=== PATIENT | male | born 1955 | race Caucasian/White ===

== ENCOUNTER 2018-08-30 05:10 | Inpatient (IN) ==
--- NOTE | 2018-08-07 11:20 | Anesthesiology Consultation ---
Date of Service August 07, 2018 Assessment & Plan (1) Encounter for pre-operative examination: - Check BSG AM DOS - Cardio note= 08/03/18= "stress test shows no perfusion defects and normal EF.. may proceed with knee replacement surgery with acceptably low cardiac risk.. an EKG is recommended in recovery" - OK to continue ASA perioperatively per surgeon* Chart Review Chart Review: Acceptable Risk for Surgery and Patient seen in Pre Admission Testing Teaching & Discussion Pre-Anesthesia Teaching/Discussion Notes: Instructed NPO after midnight before surgery,except medications with 15 cc of water. Medication instructions provided according to the PAT guidelines. History Surgery Operation Date: 08/30/18 07:00 Proposed Procedures p Left Total Knee Arthroplasty - Norman Urbano MD Height/Weight Height: 6 ft Weight: 127.1 kg Allergies Allergy/AdvReac Type Severity Reaction Status Date / Time Penicillins AdvReac "DOESN'T Verified 08/09/18 08:25 WORK" PER PT Medications Home Medications Medication Instructions Recorded Confirmed Last Taken amlodipine 10 mg PO QAM 07/31/18 07/31/18 Unknown aspirin [Aspirin Low Dose] 81 mg PO QAM 07/31/18 07/31/18 Unknown diphenhydramine HCl [Benadryl] 50 mg PO QAM 07/31/18 07/31/18 Unknown esomeprazole magnesium 40 mg PO QAM 07/31/18 07/31/18 Unknown fenofibrate nanocrystallized 145 mg PO QAM 07/31/18 07/31/18 Unknown hydrochlorothiazide 25 mg PO QAM 07/31/18 07/31/18 Unknown ibuprofen 600 - 800 mg PO QID PRN 07/31/18 07/31/18 Unknown [id number]-[id number]-2-[id number]-yur-[id number] 1 tab PO QAM 07/31/18 07/31/18 Unknown lisinopril 20 mg PO QAM 07/31/18 07/31/18 Unknown metformin 1,000 mg PO QDD 07/31/18 07/31/18 Unknown metoprolol succinate 150 mg PO QAM 07/31/18 07/31/18 Unknown rosuvastatin 10 mg PO QAM 07/31/18 07/31/18 Unknown Past Medical History Medical History CAD (coronary artery disease) STENTS X 3 (2003) Chronic back pain Foot drop, left CHRONIC S/P LUMBAR SURGERY GERD (gastroesophageal reflux disease) CONTROLLED Hiatal hernia High cholesterol History of renal stone Hx of deep venous thrombosis LLE DVT/PE (1972) POST-OP Hx of myocardial infarction STENTS X 3 (2003) Hx pulmonary embolism LLE DVT/PE (1972) POST-OP Hypertension Obesity Osteoarthritis Sciatica of left side S/P "NERVE BLOCK" 07/28/18 Past Family History Family History Mother Family history of diabetes mellitus Father Family history of diabetes mellitus Aunt Family history of diabetes mellitus Past Surgical History Surgical History History of back surgery History of cardiac cath STENTS X 3 (2003) History of colonoscopy History of meniscectomy of left knee Past Anesthesia History No Hx of Anesthesia Complications and No Family Hx of Anesthesia Complications History of PONV No Motion Sickness Screening History of Motion Sickness: Yes Social History Smoking Status: Never smoker Do You Dip or Chew Tobacco: No Hx Alcohol Use: Yes Alcohol type: beer alcohol intake frequency: holidays/special occasions only Hx Substance Use: No substance use type: does not use Exercise / Class Metabolic Activity III < 4 Walking/Shop/Light housework Review of Systems Patient denies chest pain, shortness of breath, cough, wheezing, palpitations. Physical Exam Vital Signs VITALS BP 113/68 P 56 TEMP 97.6 SP02 96%RA RESP 18 PHYSICAL Full neck and c-spine range of motion. Full TMJ range of motion. TMD 3 finger breaths Mallampati Score 3 Dentition: upper front right 3rd tooth "broken" Lungs: clear throughout to auscultation Cardiac: regular rate and rhythm, no murmurs noted Spine: normal Carotid arteries: negative bruit Extremities: no edema Short, thick neck Testing Electrocardiogram Date: 08/07/18 SB ar 55bpm with first AVB. LAD. NS IVCD. Chest X-Ray Date: 08/07/18 Findings: + NAD Cardiomegaly without acute process. Stress Test Date: 08/02/18 Type: nuclear "Normal regadenoson perfusion scan. Normal LV function, EF 56%." 57%MPHR. Laboratory Results 08/07/18 11:45 08/07/18 11:45 Blood Type O Positive 08/07/18 11:45 Antibody Screen NEGATIVE 08/07/18 11:45 PT 10.8 Seconds (9.0-12.0) 08/07/18 11:45 INR 1.1 (0.9-1.1) 08/07/18 11:45 APTT 24.2 Seconds (21.0-31.0) 08/07/18 11:45 Hemoglobin A1c 7.5 % (4.5-5.6) H 08/07/18 11:45 Urine Color Dark Yellow 08/07/18 11:45 Urine Appearance Clear (Clear) 08/07/18 11:45 Urine pH 5.0 (4.5-7.5) 08/07/18 11:45 Ur Specific [place] 1.023 (1.000-1.030) 08/07/18 11:45 Urine Protein Negative (Negative) 08/07/18 11:45 Urine Glucose (UA) Negative (Negative) 08/07/18 11:45 Urine Ketones Negative (Negative) 08/07/18 11:45 Urine Nitrite Negative (Negative) 08/07/18 11:45 Ur Leukocyte Esterase Negative (Negative) 08/07/18 11:45 Surgeon made aware of elevated hgba1c.
--- NOTE | 2018-08-07 11:22 | PAT Medication Instructions ---
Medication Instructions Date of Service August 07, 2018 Home Medications amlodipine 10 mg PO QAM aspirin [Aspirin Low Dose] 81 mg PO QAM diphenhydramine HCl [Benadryl] 50 mg PO QAM esomeprazole magnesium 40 mg PO QAM fenofibrate nanocrystallized 145 mg PO QAM gabapentin 300 mg PO QAM hydrochlorothiazide 25 mg PO QAM ibuprofen 600 - 800 mg PO QID PRN [id number]-[id number]-[id number]-[id number]-vlr-npnfmo 1 tab PO QAM lisinopril 20 mg PO QAM metformin 1,000 mg PO QDD metoprolol succinate 150 mg PO QAM rosuvastatin 10 mg PO QAM ASK your surgeon for instructions ibuprofen 600 - 800 mg PO QID PRN STOP taking 2 weeks before surgery (or as soon as possible if surgery is within 2 weeks) wacpj-ydbsh-1-nvq-exk-pwvnsg 1 tab PO QAM STOP taking 24 hours before surgery fenofibrate nanocrystallized 145 mg PO QAM DO NOT take the morning of surgery diphenhydramine HCl [Benadryl] 50 mg PO QAM hydrochlorothiazide 25 mg PO QAM lisinopril 20 mg PO QAM Take morning of surgery With a small sip of water, OTHERWISE NOTHING TO EAT OR DRINK AFTER MIDNIGHT: amlodipine 10 mg PO QAM esomeprazole magnesium 40 mg PO QAM gabapentin 300 mg PO QAM metoprolol succinate 150 mg PO QAM rosuvastatin 10 mg PO QAM Take evening before surgery metformin 1,000 mg PO QDD Other Notes If you have any questions please call us at [phone] or [phone] or [phone] or [phone]
--- NOTE | 2018-08-07 12:41 | XRay Report ---
XR chest Pre-admission PA/Lat HISTORY: 63 years-old Male pat preoperative exam. No acute chest complaints COMPARISON: None available TECHNIQUE: PA and lateral views of the chest FINDINGS: Cardiac silhouette is mildly enlarged. No pneumothorax, pleural effusion, focal airspace consolidatio n or overt pulmonary edema. Degenerative changes of the shoulders and spine. IMPRESSION: Cardiomegaly without acute process. The above report was generated using voice recognition software. It may contain grammatical, syntax o r spelling errors. Electronically signed by: Alejandro Reddy M.D. 08/07/2018 12:40 PM
[2018-08-07 12:44] LABS: Basophils # (auto) 0.03 K/uL (0-0.2); Basophils % (auto) 0.4 %; Eosinophils # (auto) 0.11 K/uL (0-0.5); Eosinophils % (auto) 1.4 %; Hematocrit (blood only) 44.2 % (42-52); Immature Granulocytes # (auto) 0.03 K/uL (0.00-0.02); Immature Granulocytes % (auto) 0.4 %; Lymphocytes # (auto) 2.28 K/uL (1.2-3.4); Lymphocytes % (auto) 29.3 %; Mean Corpuscular Hgb Conc 33.9 g/dL (32-36); Mean Corpuscular Volume 88.6 fL (80-100); Monocytes # (auto) 0.71 K/uL (0.11-0.59); Monocytes % (auto) 9.1 %; Neutrophils # (auto) 4.63 K/uL (1.4-6.5); Neutrophils % (auto) 59.4 %; Platelet Count 286 K/uL (130-400); RDW Coefficient of Variation 13.3 % (11.5-14.5); RDW Standard Deviation 42.7 fL (36.4-46.3); Red Blood Count 4.99 M/uL (4.7-6.1); White Blood Count 7.79 K/uL (4.8-10.8)
[2018-08-07 12:56] LABS: Estimated Average Glucose 169 mg/dl; Hemoglobin A1C 7.5 % (4.5-5.6)
[2018-08-07 12:58] LABS: INR 1.1 (0.9-1.1); Partial Thromboplastin Ratio 0.9; Partial Thromboplastin Time 24.2 Seconds (21.0-31.0); Prothrombin Time 10.8 Seconds (9.0-12.0)
[2018-08-07 12:59] LABS: BUN Creatinine Ratio 21.6 (10-20); Calcium 9.8 mg/dl (8.5-10.1); Creatinine Clr Calc Pharmacy 99.2 ml/min; Est GFR (African American) 87.1; Est GFR (Non-African American) 75.2
[2018-08-07 13:21] LABS: Appearance Urine Clear (Clear); Bilirubin Urine Negative (Negative); Blood Urine Negative (Negative); Color Urine Dark Yellow; Glucose Urine UA Negative (Negative); Ketones Urine Negative (Negative); Leukocyte Esterase Urine Negative (Negative); Nitrite Urine Negative (Negative); Protein Urine Negative (Negative); Specific Gravity Urine 1.023 (1.000-1.030); Urobilinogen Urine Negative (Negative)
--- NOTE | 2018-08-10 17:10 | History and Physical Report ---
DATE OF ADMISSION: 08/30/2018 CHIEF COMPLAINT: Left knee pain. HISTORY OF PRESENT ILLNESS: This 63-year-old white male presents with his for evaluation of his left knee. He has a longstanding history of left knee pain. It has become worse with time. Pain is affecting his ADLs. It is worse with weightbearing. He has tried activity modification as well as oral pain medication and topical pain medication without lasting improvement. He notes some loss of motion. No instability. No numbness or tingling. Preoperative imaging has been obtained. He elects to proceed with left total knee arthroplasty in hopes of alleviating his pain. PAST MEDICAL HISTORY: Significant for history of [place] in 10/2003, hypertension, elevated cholesterol, history of DVT and PE in 1972, sleep apnea, type 2 diabetes, back pain, GERD, hiatal hernia, obesity, and history of kidney stones. PAST SURGICAL HISTORY: Right knee open meniscectomy in 1972, L3/L4 disc surgery in 1996, 3-vessel cardiac stent placement in 2003 during cardiac catheterization. ALLERGIES: QUESTIONABLE ALLERGY TO PENICILLIN G. FAMILY HISTORY: Significant for hypertension, CVA, and DJD. Brother is from an auto accident. Mother and father are also . SOCIAL HISTORY: No tobacco use, social ETOH use. . Retired. MEDICATIONS: Amlodipine 10 mg p.o. daily, aspirin 81 mg p.o. daily, Crestor 10 mg p.o. daily, HCTZ 25 mg p.o. daily, ibuprofen 200 mg p.o. p.r.n., Lidoderm patch 5% topically daily, lisinopril 20 mg daily, metformin 500 mg 2 tablets p.o. b.i.d., metoprolol 50 mg p.o. t.i.d., Nexium 40 mg p.o. daily, [place]-3 acids daily, TriCor 145 mg p.o. daily. REVIEW OF SYSTEMS: A total of 10 systems were reviewed and are significant only for the above-stated conditions. PHYSICAL EXAMINATION: GENERAL: Well-developed, well-nourished middle-aged white male in no acute distress. Sitting in a chair. Alert and oriented. SKIN: Warm and dry with fair turgor. No rashes. Seborrheic keratoses are present. HEENT: Normocephalic, atraumatic. Eyes PERRLA, EOMI. Nares patent bilaterally without turbinate enlargement. Oropharynx without erythema or exudate. No lesions noted. Uvula midline. Oral mucosa moist. Fair dentition. Caps and fillings are noted. HEART: RRR. No MGR. Distant heart sounds. LUNGS: Clear to auscultation bilaterally. No crackles, rhonchi or wheezing. Good air movement. ABDOMEN: Obese. Bowel sounds present x4, soft, nontender. No organomegaly. No masses. MUSCULOSKELETAL: Left knee has no intra-articular effusion. Varus alignment. No MCL or LCL laxity. He lacks approximately 5 degrees of terminal extension. Flexion to just around 110 degrees. Strength is 5/5 with good quad tone. No defect in the patellar tendon or quadriceps tendon. Ambulatory with an antalgic gait. NEUROLOGIC: Cranial nerves II through XII are intact. Gross sensation is intact across the left leg by soft touch. Peripheral pulses are 2+. DATA: Radiographic imaging previously obtained shows advanced tricompartmental arthritis. Periarticular osteophytes, subchondral sclerosis, and joint space narrowing are all present. IMPRESSION: Left knee end-stage degenerative joint disease. PLAN: Postoperative prescriptions for Percocet and Coumadin will be provided at discharge from the hospital. Anticipate discharge to home with outpatient services. Preoperative lab work, EKG, and chest x-ray have been ordered. Medical clearance has been requested from his PCP, Dr. Yang. We have already received cardiac clearance from Dr. Diaz. He already has access to a walker and cane. Postop PT has also been scheduled.
[2018-08-30] MEDS ORDERED: ROPIVACAINE 0.5% HCL/PF 150 MG, BUPIVACAINE 0.5% MPF 30 ML, EPINEPHrine 0.15 MG, Ketoro... INFIL SCH (06:00)
[2018-08-30] MEDS ORDERED: LR 500ML BOLUS, THEN 15ML/HR IV SCH (06:00)
[2018-08-30] MEDS ORDERED: TRANEXAMIC ACID 1,000 MG x 1 **For Topical Use TOP SCH (06:00)
[2018-08-30] MEDS ORDERED: CEFAZOLIN 3000MG 65 ML IV SCH (06:00)
[2018-08-30] MEDS ORDERED: LR 60ML/HR IV SCH (06:00)
[2018-08-30] MEDS ORDERED: CEFAZOLIN 2000MG 2,000 MG/15 ML SYR IV SCH (06:00)
[2018-08-30] MEDS ORDERED: BUPIVACAINE 0.5 % 5 MG/1 ML PF 10ML VIAL ONE (06:27)
[2018-08-30] MEDS ORDERED: ROPIVACAINE 0.5% 5 MG/ML 30 ML VIAL ONE (06:27)
[2018-08-30] MEDS ORDERED: MIDAZOLAM HCL 1 MG/ML 2ML VIAL ONE (06:32)
[2018-08-30] MEDS ORDERED: fentaNYL citrate 100 MCG/2 ML VIAL ONE (06:32)
[2018-08-30] MEDS ORDERED: POVIDONE-IODINE OP SOLN 30 ML BTL ONE (06:35)
[2018-08-30] MEDS ORDERED: ORTHO JOINT ANESTHETIC ONE (06:35)
--- NOTE | 2018-08-30 06:40 | History & Physical Bridge Note ---
Date of Service August 30, 2018 History & Physical Bridge Note I have examined the patient, reviewed the History & Physical and in the interval since the performance of the History & Physical I have noted the following changes of clinical significance:consent obtained. no changes noted
[2018-08-30] MEDS ORDERED: ePHEDrine sulfate 50 MG/ML AMP IV PRN (07:04)
[2018-08-30] MEDS ORDERED: ATROPINE SULFATE 0.1 MG/ML 10ML SYR IV PRN (07:04)
[2018-08-30] MEDS ORDERED: PROPOFOL IV EMULSION 10 MG/ML 20 ML VIAL IV ONE ×2 (07:18→08:28)
[2018-08-30] MEDS ORDERED: LIDOCAINE HCL 2% 2 ML VIAL/AMP(20MG/ML) INFIL ONE (07:18)
--- NOTE | 2018-08-30 08:33 | Post Operative Brief Note ---
Immediate Post Op Note v1 Date of Surgery August 30, 2018 Pre & Post Diagnosis Operation Date: 08/30/18 07:00 Pre-Op Diagnosis: Left Knee End-Stage Degenerative Joint Disease Post-Op Diagnosis: Left Knee End-Stage Degenerative Joint Disease Procedure Operation Date: 08/30/18 07:00 Actual Procedures p Left Total Knee Arthroplasty(Left) - Norman Urbano MD Surgeon Norman Urbano MD Agricultural Equipment Test Engineer [facility] Estimated Blood Loss 50 Findings Consistent with Post-Op Diagnosis
--- NOTE | 2018-08-30 08:46 | Operative Report ---
Post Operative Report Pre & Post Diagnosis Operation Date: 08/30/18 07:00 Pre-Op Diagnosis: Left Knee End-Stage Degenerative Joint Disease Post-Op Diagnosis: Left Knee End-Stage Degenerative Joint Disease Procedure Operation Date: 08/30/18 07:00 Actual Procedures p Left Total Knee Arthroplasty(Left) - Norman Urbano MD Surgeon NIRMAL Urbano MD Nut Sorter sejose de jesus Estimated Blood Loss 50 Findings Consistent with Post-Op Diagnosis Specimens see operative report Drains none Complications none Disposition Accompanied Patient To Recovery: Yes Disposition: Recovery Room Indications This 63-year-old white male presented to the office with complaints of intractable left knee pain. He had tried conservative care measures including activity modification and oral pain medication, without lasting relief. He elected to proceed with surgical intervention after being educated about potential risks and outcomes. Reoperative imaging was obtained. Description of Procedure Patient was administered a regional block and then taken to the operating room where he was given sedation. He was prepped and draped in the usual sterile fashion. Please see Dr. Urbano's operative report for specifics of the procedure. I was present for the entire case from initial patient positioning through final wound closure. Assistance was provided tissue retraction, hemostasis, trial implant placement, final implant placement, and final wound closure. Patient was taken to the recovery room in satisfactory condition. I attest to the content of the Intraoperative Record and any orders documented therein. Any exceptions are noted below.
--- NOTE | 2018-08-30 08:51 | Operative Report ---
DATE OF OPERATION: 08/30/2018 SURGEON: Norman Urbano MD SOFTWARE QUALITY ASSURANCE ENGINEER: Abilio Lyon PA-C. No resident or fellow available. PREOPERATIVE DIAGNOSES: Severe osteoarthritis, left knee with chronic cruciate insufficiency, varus alignment and subluxation, tricompartmental degenerative joint disease. POSTOPERATIVE DIAGNOSES: Severe osteoarthritis, left knee with chronic cruciate insufficiency, varus alignment and subluxation, tricompartmental degenerative joint disease. OPERATION PERFORMED: Cemented left total knee replacement, correction of soft tissue deformity. PERIOPERATIVE SITUATION: Medically cleared male with intractable knee pain, has had extensive history of comorbidities, medically has been cleared. At this point in time, he understands the risks and consequences. Please see consent. SUMMARY OF IMPLANTS: Size 4 left posterior cruciate substituting femur, size 4 mobile bearing tray, oval domed 3 pegged patella size 41, tibial insert size 4 12.5 mm thick posterior cruciate substituting, 2 bags of [place] G cement. ESTIMATED BLOOD LOSS: 50 mL. PATHOLOGY: Pending on bone. DVT prophylaxis warfarin normogram DESCRIPTION OF PROCEDURE: The patient appropriately identified, site verified, consent verified. Antibiotics confirmed as being given. The left lower extremity was prepped and draped in usual routine fashion. Tourniquet inflated to 300 mmHg after exsanguination of limb with a rubber Esmarch bandage for a total of 56 minutes. Midline exposure utilized. Parapatellar arthrotomy performed. Extensive synovectomy completed. Huge osteophytes resected. Soft tissue release performed medially and laterally. The distal femur was then resected 14 mm, proximal tibia, then resected 4 mm. This allowed the extension gap to be good, but still slightly tight laterally, a little further posterior release performed. This did balance that nicely. The distal femur was then measured between a 5 and a 4, was measured 5 cut 4. The flexion gap was then checked. It was excellent. The remaining cuts were then made. The box cut made and the size 4 fit well. The tibia was then broached and reamed to a size 4 and trial reduction with 10 and 12.5. The 12.5 gave better mid range stability with no loss of extension. The patella was sized to 43, was resected leaving about 18 mm and then the seating holes made and the trial tracked well. The Orthomix was then injected all throughout the knee posteriorly as well as anteriorly. All the trial implants were then removed. The TXA was then placed for 2 minutes. The wound was irrigated with Betadine Pulsavac and then the permanent cemented into position. After 12 minutes, the tourniquet deflated. Minor bleeding points controlled with electrocautery. After 14 minutes, the knee flexed and no major cement removal required. The wound was irrigated with Betadine Pulsavac and then reduced with the permanent spacer and the patella tracked well. The knee was stable in extension, mid range flexion and 30 degrees of flexion. The wound was then irrigated one final time and closed with #2 Vicryl for the capsule layer, 2-0 Vicryl for the subcutaneous layer and stainless steel clips for skin. Appropriate dressing applied. The patient transferred to the recovery room in satisfactory condition having tolerated the procedure well. I attest to the content of the Intraoperative Record and any orders documented therein. Any exceptions are noted below. PEPITO
--- NOTE | 2018-08-30 09:20 | XRay Report ---
XR knee LT 2V routine HISTORY: 63 years-old Male Surgical Post Op left hip total joint arthroplasty. History of degenerati ve joint disease. COMPARISON: Left knee radiographs 04/17/2018 TECHNIQUE: 2 views of the left knee FINDINGS: Left knee total joint arthroplasty with patellar resurfacing. Satisfactory alignment without acute fr acture or retained foreign body. Anterior midline skin agustín with expected postsurgical soft tissue swelling and deep tissue air. Peripheral arterial calcifications noted. IMPRESSION: Left knee total joint arthroplasty and patella resurfacing with satisfactory alignment. The above report was generated using voice recognition software. It may contain grammatical, syntax o r spelling errors. Electronically signed by: Alejandro Reddy M.D. 08/30/2018 9:18 AM
--- NOTE | 2018-08-30 09:33 | Anesthesiology Progress Note ---
Date of Service August 30, 2018 Anesthesia Post Procedure Vital Signs Vital Signs: Temp Pulse Pulse Resp BP Pulse Ox 08/30/18 09:20 36.9 C 59 L 15 125/71 96 08/30/18 09:10 62 22 128/76 94 08/30/18 09:00 62 20 132/75 96 08/30/18 08:50 65 22 131/71 96 08/30/18 08:43 37.4 C 68 17 126/73 97 08/30/18 05:41 36.7 C 68 18 168/91 H 95 Pain Intensity Left Leg: Pain Intensity: 0 Notes Mental Status: alert / awake / arousable and participated in evaluation Patient Amnestic to Procedure: Yes Nausea / Vomiting: adequately controlled Pain: adequately controlled Airway Patency, RR, SpO2: stable & adequate BP & HR: stable & adequate Hydration State: stable & adequate Anesthetic Complications: no major complications apparent
[2018-08-30] MEDS ORDERED: TAMSULOSIN HCL 0.4 MG CAP PO PRN (09:59)
[2018-08-30] MEDS ORDERED: NALOXONE HCL 0.4 MG/1 ML VIAL/CARP IV PRN (09:59)
[2018-08-30] MEDS ORDERED: ONDANSETRON INJ 2 MG/ML 2 ML VIAL IV PRN (09:59)
[2018-08-30] MEDS ORDERED: MAGNESIUM HYDROXIDE SUSP 30 ML UDC PO PRN (09:59)
[2018-08-30] MEDS ORDERED: DiphenhydrAMINE HCL 50 MG/ML VIAL IV PRN (09:59)
[2018-08-30] MEDS ORDERED: ALUMINUM/MAGNESIUM SUSP 30 ML UDC PO PRN (09:59)
[2018-08-30] MEDS ORDERED: METOCLOPRAMIDE HCL INJ 5 MG/ML 2 ML VIAL IV PRN (09:59)
[2018-08-30] MEDS ORDERED: HYDROmorphone INJ 0.5 MG/0.5 ML SYR IV PRN (09:59)
[2018-08-30] MEDS ORDERED: BISACODYL 10 MG SUPP PR PRN (09:59)
[2018-08-30] MEDS ORDERED: KETOROLAC TROMETHAMINE 15 MG/ML VIAL IV PRN (09:59)
[2018-08-30] MEDS: ASPIRIN 81 MG ECTAB PO SCH (11:24)
[2018-08-30] MEDS: DOCUSATE SODIUM 100 MG CAP PO SCH ×2 (11:24→21:11)
[2018-08-30] MEDS: hydroCHLOROthiazide 25 MG TAB PO SCH (11:24)
[2018-08-30] MEDS: ROSUVASTATIN CALCIUM 10 MG TAB PO SCH (11:24)
[2018-08-30] MEDS: METOPROLOL SUCC 50MG EXT REL TAB PO SCH (11:25)
[2018-08-30] MEDS: AMLODIPINE BESYLATE 5 MG TAB PO SCH (11:25)
[2018-08-30] MEDS: MULTIVITAMIN TAB PO SCH (11:25)
[2018-08-30] MEDS: FENOFIBRATE NANOCRYSTALLIZED 145 MG TABLET PO SCH (11:26)
[2018-08-30] MEDS: LISINOPRIL 20 MG TAB PO SCH (11:26)
[2018-08-30] MEDS: PANTOprazole 40 MG TAB PO SCH (11:27)
--- NOTE | 2018-08-30 11:47 | Progress Note ---
DATE: 08/30/2018 Postop check status post left total knee replacement. The patient has no complaints. His spinal was starting to wear off. He is starting to get some trace function of his lower extremities bilaterally. Wound dressing is clean, dry and intact. Denies chest pain, shortness of breath, fever, chills, nausea, vomiting, or headache. Postop x-rays look excellent. ASSESSMENT: Overall, doing well. Continue with care pathway. Hep-Lock IV after lunch. Mobilize when the legs wake up, put a knee immobilizer for the first 24-48 hours. Case management visit today.
[2018-08-30] MEDS: SODIUM CHLORIDE 0.9% 1000ML 1,000 ML IV SCH ×2 (12:27→21:09)
[2018-08-30] MEDS: ACETAMINOPHEN 500 MG TAB PO SCH ×2 (13:12→21:11)
[2018-08-30] MEDS: CEFAZOLIN 2000MG 2,000 MG/15 ML SYR IV SCH ×2 (13:13→21:45)
[2018-08-30] MEDS ORDERED: ORTHO WARFARIN NOMOGRAM SCH (14:00)
[2018-08-30] MEDS: OXYCODONE HCL IR 5 MG TAB (IMMEDIATE RELEASE) PO PRN ×2 (14:42→18:35)
[2018-08-30] MEDS ORDERED: WARFARIN SOD 5 MG TAB PO ONE (16:00)
[2018-08-30] MEDS ORDERED: INSULIN HUMAN REGULAR PER UNIT 6 UNITS in SYRINGE 0 ML SC STA (17:29)
[2018-08-30] MEDS ORDERED: PHARMACY GLYCEMIC MGMT CONSULT PRN (17:44)
[2018-08-30] MEDS ORDERED: DEXTROSE 50% 50 ML SYRINGE IV PRN (17:45)
[2018-08-30] MEDS ORDERED: GLUCAGON FOR INJ 1 MG VIAL IM PRN (17:45)
[2018-08-30] MEDS ORDERED: CARBOHYDRATES FOR HYPOGLYCEMIA PO PRN (17:45)
[2018-08-30] MEDS ORDERED: GLUCOSE 10 TABS/TUBE PO PRN (17:45)
[2018-08-30] MEDS ORDERED: GLUCOSE 40% GEL 15 GM TUBE PO PRN (17:45)
[2018-08-30] MEDS: FERROUS GLUCONATE 324 MG TAB PO SCH (17:56)
[2018-08-30] MEDS ORDERED: INSULIN GLARGINE SOLOSTAR 100 UNITS/ML 3 ML PEN SC ONE (18:00)
[2018-08-30] MEDS: INSULIN ASPART 100 UNITS/ML 3 ML PEN SC SCH ×2 (18:25→21:13)
--- NOTE | 2018-08-30 19:23 | Progress Note ---
DATE: 08/30/2018 SUBJECTIVE: Status post left total knee replacement. The patient's spinal has worn off. He is back to his normal baseline with footdrop on the left. He states that he feels about the same. There is no change. Has poor dorsiflexion of his toes and his foot and ankle. Intact plantar flexion. He has poor sensation in dorsum of the foot has a sensation on the sole of his foot. Wound dressing clean, dry and intact. Can do a straight leg raise. Hip, knee range of motion, supple on the right; has some pain on the left with range but gets to about 70 degrees. Of note, his glucoses are elevated, placed a pharmacy consult for glycemic control, ordered 6 units of regular insulin stat for glucose of 246. ASSESSMENT: Overall, doing well. Plan is to discharge tomorrow if he does well overnight. Discharge summary dictated.
--- NOTE | 2018-08-30 20:39 | Discharge Summary ---
CHIEF COMPLAINT: Left knee pain. HISTORY OF PRESENT ILLNESS: The patient is admitted for elective total knee replacement on the left. A 63-year-old male with intractable pain, has significant cruciate insufficiency over 40+ years, now has substantial lateral subluxation, varus alignment, flexion contracture, and tricompartmental osteoarthritis. PAST MEDICAL HISTORY: Remarkable for history of coronary artery disease, hypertension, elevated cholesterol, DVT, PE, sleep apnea, type 2 diabetes, back pain, GERD, obesity, history of kidney stones, has a foot drop on the left. PAST SURGICAL HISTORY: Remarkable for open meniscectomy, L3-L4 disc surgery, 3-vessel cardiac stent. ALLERGIES: QUESTIONABLE TO PENICILLIN. FAMILY HISTORY: Remarkable for hypertension, CVA, DJD. Brother in an auto accident. Mother and father also secondary to age. SOCIAL HISTORY: Reveals no tobacco or alcohol use. He is , retired. MEDICATIONS: Include amlodipine, baby aspirin, Crestor, hydrochlorothiazide, ibuprofen, Lidoderm, Lisinopril, metformin, metoprolol, Nexium, omega 3 acids, and Tricor. He will be discharged on a pain medication, see script, and Coumadin. Keep INR 1.8-2.2. If INR is less than 1.4, discharge on 4 mg; 1.5-1.9, 2 mg; anything greater than 2.0, hold. REVIEW OF SYSTEMS: Reveals no chest pain, shortness of breath, fever, chills, nausea, vomiting or headache. ASSESSMENT AND PLAN: His postop x-rays look good at this point in time. We will discharge tomorrow if he does well overnight. Of note, he has a foot drop on the left that is at baseline. He does not have any active ankle extension, minimal toe movement, has positive plantar flexion. Does not like wearing his foot drop brace. Overall, doing well status post left total knee replacement. Has baseline neurologic exam, ambulate. DVT, PE prophylaxis with Coumadin. Follow up in 2 weeks for staple removal.
[2018-08-30] MEDS ORDERED: SENNA 8.6 MG TAB PO SCH (21:00)
[2018-08-31] MEDS: ACETAMINOPHEN 500 MG TAB PO SCH (05:20)
[2018-08-31 06:36] LABS: Hematocrit (blood only) 36.4 % (42-52); Hemoglobin 12.6 g/dL (14.0-18.0); Mean Corpuscular Hgb Conc 34.6 g/dL (32-36); Mean Corpuscular Volume 87.7 fL (80-100); Mean Platelet Volume 8.6 fL (7.4-10.4); Platelet Count 226 K/uL (130-400); RDW Coefficient of Variation 13.1 % (11.5-14.5); RDW Standard Deviation 42.2 fL (36.4-46.3); Red Blood Count 4.15 M/uL (4.7-6.1); White Blood Count 10.63 K/uL (4.8-10.8)
[2018-08-31 06:44] LABS: INR 1.1 (0.9-1.1)
[2018-08-31 07:09] LABS: BUN Creatinine Ratio 23.1 (10-20); Calcium 8.6 mg/dl (8.5-10.1); Creatinine Clr Calc Pharmacy 110.1 ml/min; Est GFR (African American) 98.3; Est GFR (Non-African American) 84.9; Potassium 4.2 mmol/L (3.5-5.1)
--- NOTE | 2018-08-31 07:58 | Anesthesiology Progress Note ---
Date of Service August 31, 2018 Anesthesia Post Procedure Vital Signs Vital Signs: Temp Pulse Pulse Resp BP Pulse Ox 08/31/18 07:04 37.2 C 65 18 136/60 95 08/31/18 04:00 37.6 C H 69 16 125/58 L 96 08/30/18 23:30 37.2 C 69 18 159/86 H 95 08/30/18 21:47 36.5 C 83 20 138/74 94 08/30/18 15:10 37.4 C 71 20 141/68 H 98 08/30/18 12:48 65 18 130/69 96 08/30/18 11:48 70 18 136/74 92 08/30/18 10:40 63 18 143/79 H 97 08/30/18 10:15 64 18 133/70 96 08/30/18 09:45 36.8 C 61 16 124/68 96 08/30/18 09:30 60 14 125/70 96 08/30/18 09:20 36.9 C 59 L 15 125/71 96 08/30/18 09:10 62 22 128/76 94 08/30/18 09:00 62 20 132/75 96 08/30/18 08:50 65 22 131/71 96 08/30/18 08:43 37.4 C 68 17 126/73 97 Pain Intensity Left Leg: Pain Intensity: 5 Notes Mental Status: alert / awake / arousable and participated in evaluation Nausea / Vomiting: adequately controlled Pain: adequately controlled Airway Patency, RR, SpO2: stable & adequate BP & HR: stable & adequate Hydration State: stable & adequate
[2018-08-31] MEDS ORDERED: dexAMETHasone 10 MG in SYRINGE 0 ML IV SCH (08:00)
[2018-08-31] MEDS ORDERED: INSULIN GLARGINE SOLOSTAR 100 UNITS/ML 3 ML PEN SC ONE (08:45)
[2018-08-31] MEDS: DOCUSATE SODIUM 100 MG CAP PO SCH (08:56)
[2018-08-31] MEDS: METOPROLOL SUCC 50MG EXT REL TAB PO SCH (08:56)
[2018-08-31] MEDS: hydroCHLOROthiazide 25 MG TAB PO SCH (08:56)
[2018-08-31] MEDS: LISINOPRIL 20 MG TAB PO SCH (08:56)
[2018-08-31] MEDS: AMLODIPINE BESYLATE 5 MG TAB PO SCH (08:57)
[2018-08-31] MEDS: FERROUS GLUCONATE 324 MG TAB PO SCH (08:57)
[2018-08-31] MEDS: PANTOprazole 40 MG TAB PO SCH (08:57)
[2018-08-31] MEDS: ASPIRIN 81 MG ECTAB PO SCH (08:57)
[2018-08-31] MEDS: FENOFIBRATE NANOCRYSTALLIZED 145 MG TABLET PO SCH (08:57)
[2018-08-31] MEDS: ROSUVASTATIN CALCIUM 10 MG TAB PO SCH (08:58)
[2018-08-31] MEDS: MULTIVITAMIN TAB PO SCH (08:58)
[2018-08-31] MEDS: OXYCODONE HCL IR 5 MG TAB (IMMEDIATE RELEASE) PO PRN ×2 (09:07→12:31)
[2018-08-31] MEDS: INSULIN ASPART 100 UNITS/ML 3 ML PEN SC SCH (09:08)
--- NOTE | 2018-08-31 10:03 | Pharmacy Report ---
Glycemic Control Consultation - Date of Service August 31, 2018 - Scope Scope: Glycemic Pharmacist consulted by Dr Urbano on 08/30/18 for glycemic control and to write orders per [facility] inpatient glycemic control protocol - Objective Weight: 128.1 kg Accuchecks BSG (last 24hrs): 08/30/18 08/30/18 08/30/18 17:17 20:59 22:35 Glucose POC Glucose 246 H 209 H 208 H 08/31/18 08/31/18 06:11 08:28 Glucose 173 H POC Glucose 170 H Laboratory Data (last 24hrs): 08/31/18 06:11 Potassium 4.2 Carbon Dioxide 30 Anion Gap 4.0 Creatinine 0.95 Est Cr Clr Drug Dosing 110.1 HbA1c: Hemoglobin A1c 7.5 % (4.5-5.6) H 08/07/18 11:45 - Recent Pertinent Medications Outpatient Anti-diabetic Regimen: * Metformin 1g PO daily with dinner * A1c = 7.5 % 08/07/18 The patient is currently receiving: * Basal insulin: Lantus 25 units x 1 dose yesterday evening * Correctional Insulin: Novolog Correction per scale ACHS Goal Range: Low 110 mg/dL - High 140 mg/dL Correction Factor: 20 mg/dL/unit * Prandial insulin: Per carb ratio of 1 unit per 6 grams CHO consumed * Oral Agents: On Hold Risk Factors for Insulin Resistance: * Steroids: Topical dexamethasone 4mg yesterday, 10mg IV x1 dose today at 0900 * Recent Surgery: POD1 TKA * Diet: Type 2 DM - Assessment & Plan Assessment & Plan: ASSESSMENT: * 63 yo male POD 1 TKA, inadequately controlled type 2 diabetic, only on Metformin at home * Oral agents are not recommended for inpatient use d/t drug interactions, changing PO intake, and difficulty titrating for acute hyper/hypoglycemia. ADA recommends re-initiating outpatient oral agents 1-2 days prior to discharge if/when appropriate if they were held on admission. * Will hold oral agents for admission and utilize SQ basal bolus insulin regimen which is the recommended regimen for inpatient glycemic control. * Giving dose of Lantus 50 units today with IV Dexamethasone to cover steroid ef fects on glycemic control. Patient may need another dose tomorrow morning depending on blood sugars. * Will initiate weight based insulin dosing for insulin lesley patient, stressed for IV steroids, and titrate based on BSG trends. * ADA & AACE recommend a goal blood sugar range 140-180 mg/dl for the majority of critically ill & non-critically ill patients. However, more stringent targets may be selected in individual cases. Will utilize more stringent goal of 110-140mg/dl based on patient age & comorbidities. Additionally, tighter glycemic control is warranted to facilitate wound/infection healing. PLAN FOR INPATIENT GLYCEMIC CONTROL: * Holding outpatient oral diabetes medications * Basal insulin * Lantus 50 units SQ x 1 dose now * Bolus insulin * NovoLog per scale ACHS or Q6hrs while NPO * Goal Range: Low 110 mg/dL - High 140 mg/dL * TIGHTEN: Correction Factor: 15 mg/dL/unit * TIGHTEN: Nutritional / Prandial insulin per carb ratio of 1 unit per 4 grams CHO consumed DISCHARGE RECOMMENDATIONS: * A1c 7.5% above goal for patient's age and comorbidities. * I would recommend starting Lantus 20 units SQ daily if patient is agreeable to starting insulin * Otherwise I'd recommend beginning a GLP-1 based on insurance coverage. * Please note that the plan above was derived based on current level of insulin resistance and hospital stress. These recommendations are appropriate for inpatient admission only. Plan of care upon discharge will need to be reassessed to avoid potential outpatient hypo/hyperglycemia. Thank you.
--- NOTE | 2018-08-31 10:04 | Orthopedic Progress Note ---
Date of Service August 31, 2018 Assessment & Plan (1) Status post total left knee replacement: Patient was educated regarding today's findings. Discharge orders were placed. He will go home with home health Dressings were changed by me this morning. Wound looks excellent. Prescription was provided for Anderson 5 mg to be used every 6 hours as needed for pain control He may substitute with extra strength Tylenol if pain is adequately controlled. Discharge after PT and OT today. Start home PT with maximum flexion of 90 degrees. Prescription provided. Follow-up in the office in 2 weeks as scheduled for staple removal. Discontinue his knee immobilizer tomorrow morning. Resume his usual home medications. Start Coumadin 4 mg daily and have his blood rechecked on Tuesday. Today's dose will be given prior to discharge. Call the office with any other questions. Subjective Patient is seen in his room this morning. He states he had some nausea and dizziness overnight that he thinks is due to the narcotic pain medication. Other than that, he has no complaints. He states he feels fine now. He is ready for breakfast. He states his thigh is sore where the tourniquet was. His knee pain is mild. He has been up and out of bed. He states he has walked in the hallway. He feels ready for discharge. No chest pain, shortness of breath, or abdominal pain. Review of Systems Review of Systems: Unchanged from preop. Physical Exam Physical Exam: Patient is alert, awake, and sitting in the bedside chair. Postsurgical dressings are intact on the left knee. Immobilizer is in place. Upon removal, he has no active drainage. There is no drainage on his dressings. Expected postoperative edema. No ecchymosis. He is able to perform straight leg raise. Intact motor function to the ankle and toes. He has full terminal extension. Neurologic: Gross sensation is intact across the left leg by soft touch. Peripheral pulses are 2+. Labs: INR 1.1. H&H are stable. Bedside glucose 173. Results & Data Vital Signs (Past 12 Hours) Vital Signs Temp Pulse Resp BP Pulse Ox 08/31/18 07:04 37.2 C 65 18 136/60 95 08/31/18 04:00 37.6 C H 69 16 125/58 L 96 08/30/18 23:30 37.2 C 69 18 159/86 H 95 08/30/18 21:47 36.5 C 83 20 138/74 94
[2018-08-31] MEDS ORDERED: WARFARIN SOD 5 MG TAB PO SCH (11:45)
== END 2018-08-31 13:44 | disposition home health service (06) | DRG 470 ==
LOC: ASU 05:10 → 3E 09:40

== ENCOUNTER 2019-01-17 05:04 | Inpatient (IN) ==
--- NOTE | 2018-12-28 08:42 | PAT Medication Instructions ---
Medication Instructions Date of Service December 28, 2018 Home Medications amlodipine 10 mg PO QAM aspirin [Aspirin Low Dose] 81 mg PO QAM diphenhydramine HCl [Benadryl] 50 mg PO QAM esomeprazole magnesium 40 mg PO QAM fenofibrate nanocrystallized 145 mg PO QAM hydrochlorothiazide 25 mg PO QAM lisinopril 20 mg PO QAM metformin 1,000 mg PO QDD metoprolol succinate 150 mg PO QAM rosuvastatin 10 mg PO QAM acetaminophen [Tylenol Extra Strength] 500 mg PO Q6H NEEDED ASK your surgeon for instructions aspirin [Aspirin Low Dose] 81 mg PO QAM STOP taking 24 hours before surgery fenofibrate nanocrystallized 145 mg PO QAM DO NOT take the morning of surgery diphenhydramine HCl [Benadryl] 50 mg PO QAM hydrochlorothiazide 25 mg PO QAM lisinopril 20 mg PO QAM Take morning of surgery With a small sip of water, OTHERWISE NOTHING TO EAT OR DRINK AFTER MIDNIGHT: amlodipine 10 mg PO QAM esomeprazole magnesium 40 mg PO QAM metoprolol succinate 150 mg PO QAM rosuvastatin 10 mg PO QAM acetaminophen [Tylenol Extra Strength] 500 mg PO Q6H NEEDED (if needed; stop 4 hours before surgery) Take evening before surgery metformin 1,000 mg PO QDD acetaminophen [Tylenol Extra Strength] 500 mg PO Q6H NEEDED (if needed) Other Notes If you have any questions please call us at [phone] or [phone] or [phone] or [phone]
--- NOTE | 2018-12-28 12:20 | Anesthesiology Consultation ---
Date of Service December 28, 2018 Assessment & Plan (1) Encounter for pre-operative examination: - No previous anesthesia records re: intubation. Chart Review Chart Review: Acceptable Risk for Surgery (Pending medical clearance from PCP) and Patient seen in Pre Admission Testing Consults Requested medical (Dr. Yang (01/05)) Teaching & Discussion Pre-Anesthesia Teaching/Discussion Notes: Instructed NPO after midnight before surgery, except medications with 15 cc of water. Medication instructions provided according to the PAT guidelines. History Surgery Operation Date: 01/17/19 07:00 Proposed Procedures p Right Total Knee Arthroplasty - Norman Urbano MD Height/Weight Height: 6 ft Weight: 128.4 kg Allergies Allergy/AdvReac Type Severity Reaction Status Date / Time tramadol AdvReac Mild Verified 12/28/18 12:36 Penicillins AdvReac "DOESN'T Verified 12/20/18 13:16 WORK" PER PT Medications Home Medications Medication Instructions Recorded Confirmed Last Taken amlodipine 10 mg PO QAM 07/31/18 12/20/18 08/29/18 10:00 aspirin [Aspirin Low Dose] 81 mg PO QAM 07/31/18 12/20/18 08/29/18 10:00 diphenhydramine HCl [Benadryl] 50 mg PO QAM 07/31/18 12/20/18 08/29/18 10:00 esomeprazole magnesium 40 mg PO QAM 07/31/18 12/20/18 08/29/18 10:00 fenofibrate nanocrystallized 145 mg PO QAM 07/31/18 12/20/18 08/29/18 10:00 hydrochlorothiazide 25 mg PO QAM 07/31/18 12/20/18 08/29/18 10:00 lisinopril 20 mg PO QAM 07/31/18 12/20/18 08/29/18 10:00 metformin 1,000 mg PO QDD 07/31/18 12/20/18 08/26/18 17:00 metoprolol succinate 150 mg PO QAM 07/31/18 12/20/18 08/29/18 10:00 rosuvastatin 10 mg PO QAM 07/31/18 12/20/18 08/29/18 10:00 acetaminophen [Tylenol Extra 500 mg PO Q6H PRN 08/30/18 12/20/1808/29/19 17:00 Strength] Past Medical History Medical History CAD (coronary artery disease) STENTS X 3 (2003) Chronic back pain Diabetes mellitus Foot drop, left CHRONIC S/P LUMBAR SURGERY GERD (gastroesophageal reflux disease) CONTROLLED Hiatal hernia High cholesterol History of rectal bleeding History of renal stone Hx of deep venous thrombosis LLE DVT/PE (1972) POST-OP Hx of myocardial infarction STENTS X 3 (2003) Hx pulmonary embolism LLE DVT/PE (1972) POST-OP Hypertension Obesity Osteoarthritis Sciatica of left side S/P "NERVE BLOCK" 07/28/18 Exercise / Class Metabolic Activity III < 4 Walking/Shop/Light housework (Limited due to back and knee pain and foot drop. Able to slowly climb FOS one at a time. Denies CP or SOB. ) Past Surgical History Surgical History History of back surgery History of cardiac cath STENTS X 3 (2003) History of colonoscopy History of meniscectomy of left knee History of total left knee replacement Past Anesthesia History No Hx of Anesthesia Complications and No Family Hx of Anesthesia Complications History of PONV No Hx of PONV and Hx of Motion Sickness Social History Smoking Status: Never smoker Do You Dip or Chew Tobacco: No Hx Alcohol Use: Yes Alcohol type: beer alcohol intake frequency: holidays/special occasions only Hx Substance Use: No substance use type: does not use Review of Systems Patient denies chest pain, shortness of breath, dyspnea on exertion, cough, wheezing, palpitations. +Joint Pain (Back, Knee, Hands) +Acid Reflux (controlled with current medications) Physical Exam Vital Signs BP: 116/70 P: 66 R: 18 T: 98.1 SPO2: 97% on RA Constitutional + obese ENMT Thyromental Distance: < 3.5 Finger Breadths (2) Mallampati Class: II Mouth / Teeth: 1. Cap Neck + shortened thyromental distance and + thick neck; neck extension not limited Respiratory normal respiratory effort Auscultation: lungs clear to auscultation bilaterally Cardiovascular Rate/Rhythm: regular rate and regular rhythm Heart Sounds: no murmur Vessels: no carotid bruit Distant heart tones due to body habitus Neurologic moves all extremities Psychiatric Orientation: alert and oriented x 3 Testing Laboratory Results 12/28/18 12:47 12/28/18 12:47 PT 10.7 Seconds (9.0-12.0) 12/28/18 12:47 INR 1.0 (0.9-1.1) 12/28/18 12:47 APTT 24.5 Seconds (21.0-31.0) 12/28/18 12:47 Hemoglobin A1c 7.2 % (4.5-5.6) H 12/28/18 12:47 Urine Color Yellow 12/28/18 12:47 Urine Appearance Clear (Clear) 12/28/18 12:47 Urine pH 5.0 (4.5-7.5) 12/28/18 12:47 Ur Specific Spangle 1.022 (1.000-1.030) 12/28/18 12:47 Urine Protein Negative (Negative) 12/28/18 12:47 Urine Glucose (UA) Negative (Negative) 12/28/18 12:47 Urine Ketones Negative (Negative) 12/28/18 12:47 Urine Nitrite Negative (Negative) 12/28/18 12:47 Ur Leukocyte Esterase Negative (Negative) 12/28/18 12:47 Blood Type O Positive 12/28/18 12:47 Antibody Screen NEGATIVE 12/28/18 12:47 Electrocardiogram Date: 08/07/18 Findings: + SB @ (55) 1st degree AV block Left axis deviation NS IVCD. Chest X-Ray Date: 08/07/18 Findings: + NAD Cardiomegaly without acute process. Stress Test Date: 08/02/18 Type: nuclear Resting EF: 56% "Normal regadenoson perfusion scan. Normal LV function, EF 56%." 57%MPHR.
[2018-12-28 16:26] LABS: Basophils # (auto) 0.04 K/uL (0-0.2); Basophils % (auto) 0.7 %; Eosinophils # (auto) 0.14 K/uL (0-0.5); Eosinophils % (auto) 2.6 %; Hematocrit (blood only) 41.1 % (42-52); Hemoglobin 13.9 g/dL (14.0-18.0); Immature Granulocytes # (auto) 0.02 K/uL (0.00-0.02); Immature Granulocytes % (auto) 0.4 %; Lymphocytes # (auto) 1.73 K/uL (1.2-3.4); Lymphocytes % (auto) 32.3 %; Mean Corpuscular Hemoglobin 29.2 pg (25-34); Mean Corpuscular Hgb Conc 33.8 g/dL (32-36); Mean Corpuscular Volume 86.3 fL (80-100); Mean Platelet Volume 8.7 fL (7.4-10.4); Monocytes # (auto) 0.56 K/uL (0.11-0.59); Monocytes % (auto) 10.4 %; Neutrophils # (auto) 2.87 K/uL (1.4-6.5); Neutrophils % (auto) 53.6 %; Platelet Count 248 K/uL (130-400); RDW Coefficient of Variation 13.8 % (11.5-14.5); RDW Standard Deviation 43.5 fL (36.4-46.3); Red Blood Count 4.76 M/uL (4.7-6.1); White Blood Count 5.36 K/uL (4.8-10.8)
[2018-12-28 16:28] LABS: Appearance Urine Clear (Clear); Bilirubin Urine Negative (Negative); Blood Urine Negative (Negative); Color Urine Yellow; Glucose Urine UA Negative (Negative); Ketones Urine Negative (Negative); Leukocyte Esterase Urine Negative (Negative); Nitrite Urine Negative (Negative); Protein Urine Negative (Negative); Specific Gravity Urine 1.022 (1.000-1.030); Urobilinogen Urine Negative (Negative)
[2018-12-28 16:38] LABS: Partial Thromboplastin Ratio 0.9; Partial Thromboplastin Time 24.5 Seconds (21.0-31.0); Prothrombin Time 10.7 Seconds (9.0-12.0)
[2018-12-28 17:47] LABS: BUN Creatinine Ratio 17.5 (10-20); Est GFR (Non-African American) 91.4; Potassium 4.6 mmol/L (3.5-5.1)
[2018-12-29 06:50] LABS: Estimated Average Glucose 160 mg/dl; Hemoglobin A1C 7.2 % (4.5-5.6)
--- NOTE | 2019-01-09 08:03 | History and Physical Report ---
DATE OF ADMISSION: 01/17/2019 CHIEF COMPLAINT: Right knee pain. HISTORY OF PRESENT ILLNESS: This 63-year-old white male presents to the office with complaints of intractable right knee pain. He has had a long-standing history of right knee pain. He has known DJD. It is worse with weightbearing. Pain is affecting his ADLs. He has tried activity modification as well as oral pain medication and topical pain medication without lasting improvement. He notes some loss of motion. No instability. No numbness or tingling. He has a previous left total knee arthroplasty and has done well with that. He elects to proceed with the same on the right. Preoperative imaging has been obtained. PAST MEDICAL HISTORY: Significant for history of DC in October 2003, hypertension, elevated cholesterol, history of DVT and PE in 1972, sleep apnea, type 2 diabetes, back pain, GERD, hiatal hernia, obesity, and history of kidney stones. PAST SURGICAL HISTORY: Right knee open meniscectomy in 1972, L3/L4 disc surgery in 1996, 3-vessel cardiac stent placement in 2003, cardiac catheterization, left knee TKA 08/30/2018. ALLERGIES: QUESTIONABLE ALLERGY TO PENICILLIN G. He has tolerated cephalosporins. FAMILY HISTORY: Significant for hypertension, CVA, DJD. Brother is from an auto accident. Mother and father are also . Two sons living and well. SOCIAL HISTORY: No tobacco use. Social ETOH use. . 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 CURRENT MEDICATIONS: Amlodipine 10 mg p.o. daily, amoxicillin 500 mg p.r.n. dental visits, aspirin 81 mg p.o. daily, Crestor 10 mg p.o. daily, HCTZ 25 mg p.o. daily, ibuprofen 200 mg p.r.n., Lidoderm 5% topical patch daily, lisinopril 20 mg p.o. daily, metformin 500 mg 2 tablets p.o. b.i.d., metoprolol 50 mg p.o. t.i.d., Nexium 40 mg p.o. daily, omega 3 capsule daily, TriCor 145 mg p.o. daily, Tylenol p.r.n., Ultram 50 mg p.o. p.r.n. REVIEW OF SYSTEMS: A total of 10 systems are reviewed and are significant only for above stated conditions. PHYSICAL EXAMINATION: GENERAL: Well-developed, well-nourished middle aged white male in no acute distress. Sitting in a chair. Alert and oriented. SKIN: Warm and dry with fair turgor. Seborrheic keratosis are present. No rashes. HEENT: Normocephalic, atraumatic. Eyes PERRLA, EOMI. Nares patent bilaterally without turbinate enlargement. Oropharynx without erythema or exudate. No lesions noted. Uvula midline. Oral mucosa moist. Fair dentition. Dental caps and fillings are noted. HEART: RRR. No MGR. Distant heart sounds. LUNGS: Clear to auscultation bilaterally. No crackles, rhonchi or wheezing. Good air movement. ABDOMEN: Obese. Bowel sounds present x4, soft, nontender. No organomegaly. No masses. MUSCULOSKELETAL: Right knee has no intra-articular effusion today. No MCL or LCL laxity. He lacks approximately 3-4 degrees of terminal extension. Flexion to around 100 degrees. Strength is 5/5 with good quad tone. No defect in the patellar tendon or quadriceps tendon. Ambulatory with an antalgic gait. There is discomfort with palpation over the medial and lateral joint lines. Medial is worst. No palpable crepitus. NEUROLOGIC: Gross sensation is intact across both lower extremities by soft touch. Peripheral pulses are 2+. Cranial nerves II-XII are intact. Foot drop on the left. DATA: Radiographic imaging previously obtained shows advanced tricompartmental arthritis, worse in the medial compartment. Periarticular osteophytes, subchondral sclerosis, and joint space narrowing are all present. IMPRESSION: Right knee end-stage degenerative joint disease. PLAN: Approximately 20 minutes was spent with the patient reviewing operative procedure, postoperative recovery, physical therapy requirements and medication use. Postoperative prescriptions for Percocet and Coumadin will be provided at discharge from the hospital. Anticipate discharge to home with home health services. Preoperative lab work, EKG, and chest x-ray have been ordered. Medical clearance has been requested from his PCP, Dr. Yang. His russian teacher, Dr. Diaz has already cleared him. The patient already has a walker and cane.
[2019-01-17] MEDS ORDERED: TRANEXAMIC ACID 1,000 MG x 1 **For Topical Use TOP SCH (06:00)
[2019-01-17] MEDS ORDERED: LR 500ML BOLUS, THEN 15ML/HR IV SCH (06:00)
[2019-01-17] MEDS ORDERED: LR 500ML BOLUS IV SCH (06:00)
[2019-01-17] MEDS ORDERED: CEFAZOLIN 3000MG 72.5 ML IV SCH (06:00)
[2019-01-17] MEDS ORDERED: ROPIVACAINE 0.5% HCL/PF 150 MG, BUPIVACAINE 0.5% MPF 30 ML, EPINEPHrine 0.15 MG, Ketoro... INFIL SCH (06:00)
[2019-01-17] MEDS ORDERED: LR 60ML/HR IV SCH (06:00)
[2019-01-17] MEDS ORDERED: BUPIVACAINE 0.5 % 5 MG/1 ML PF 10ML VIAL ONE (06:23)
[2019-01-17] MEDS ORDERED: BUPIVACAINE 0.25% 30 ML VIAL ONE (06:23)
[2019-01-17] MEDS ORDERED: ORTHO JOINT ANESTHETIC ONE (06:27)
--- NOTE | 2019-01-17 06:31 | History & Physical Bridge Note ---
Date of Service January 17, 2019 History & Physical Bridge Note I have examined the patient, reviewed the History & Physical and in the interval since the performance of the History & Physical I have noted the following changes of clinical significance: consent obtained.no changes noted
[2019-01-17] MEDS ORDERED: MIDAZOLAM HCL 1 MG/ML 2ML VIAL ONE (06:33)
[2019-01-17] MEDS ORDERED: LIDOCAINE HCL 2% 2 ML VIAL/AMP(20MG/ML) INFIL ONE (07:21)
[2019-01-17] MEDS ORDERED: PROPOFOL IV EMULSION 10 MG/ML 20 ML VIAL IV ONE ×3 (07:21→08:06)
--- NOTE | 2019-01-17 08:34 | Post Operative Brief Note ---
Immediate Post Op Note v1 Date of Surgery January 17, 2019 Pre & Post Diagnosis Operation Date: 01/17/19 07:00 Pre-Op Diagnosis: Right Knee End-Stage Degenerative Joint Disease Post-Op Diagnosis: Right Knee End-Stage Degenerative Joint Disease Procedure Operation Date: 01/17/19 07:00 Actual Procedures p Right Total Knee Arthroplasty(Right) - Norman Urbano MD Surgeon Norman Urbano MD Registered Dietetic Technician [facility] Estimated Blood Loss 25 Findings Consistent with Post-Op Diagnosis
--- NOTE | 2019-01-17 08:41 | Operative Report ---
Post Operative Report Pre & Post Diagnosis Operation Date: 01/17/19 07:00 Pre-Op Diagnosis: Right Knee End-Stage Degenerative Joint Disease Post-Op Diagnosis: Right Knee End-Stage Degenerative Joint Disease Procedure Operation Date: 01/17/19 07:00 Actual Procedures p Right Total Knee Arthroplasty(Right) - Norman Urbano MD Surgeon NIRMAL Urbano MD Gill Box Tender sejose de jesus Estimated Blood Loss 25 Findings Consistent with Post-Op Diagnosis Specimens see operative report Drains none Complications none Disposition Accompanied Patient To Recovery: Yes Disposition: Recovery Room Indications This 63-year-old white male presented to the office with complaints of intractable right knee pain. He had tried conservative care measures without improvement. Patient previously had a left total knee arthroplasty and elected to proceed with the same on the right. Preoperative imaging was obtained. Description of Procedure Patient was administered a spinal anesthetic and then taken to the operating room where he was given sedation. He was prepped and draped in the usual sterile fashion. Please see Dr. Urbano's operative report for specifics of the procedure. I was present for the entire case from initial patient positioning through final wound care. Assistance was provided in tissue retraction, hemostasis, trial implant placement, final implant placement, and final wound closure. Patient was taken to the recovery room in satisfactory condition. I attest to the content of the Intraoperative Record and any orders documented therein. Any exceptions are noted below.
[2019-01-17] MEDS ORDERED: ATROPINE SULFATE 0.1 MG/ML 10ML SYR IV PRN (08:45)
[2019-01-17] MEDS ORDERED: ePHEDrine sulfate 50 MG/ML AMP IV PRN (08:45)
--- NOTE | 2019-01-17 09:17 | XRay Report ---
XR knee RT 2V routine CLINICAL HISTORY: Postoperative evaluation. COMPARISON: Right knee radiographs April 25, 2018. FINDINGS: Alignment of the total right knee arthroplasty is anatomic. There is no fracture or unexpe cted radiopaque foreign body. Skin agustín are present. IMPRESSION: Expected findings following total right knee arthroplasty. Electronically signed by: Joshua Reyes M.D. 01/17/2019 9:16 AM
--- NOTE | 2019-01-17 09:22 | Anesthesiology Progress Note ---
Date of Service January 17, 2019 Anesthesia Post Procedure Vital Signs Vital Signs: Temp Pulse Pulse Resp BP Pulse Ox 01/17/19 09:15 60 19 120/69 94 01/17/19 09:05 37.3 C 55 L 17 130/74 95 01/17/19 08:55 63 17 131/67 95 01/17/19 08:45 60 17 116/70 95 01/17/19 08:39 36.2 C L 62 18 124/67 95 01/17/19 05:43 37.2 C 60 18 151/93 H 97 Transfer of Care Handoff Completed per policy Notes Mental Status: alert / awake / arousable and participated in evaluation Nausea / Vomiting: adequately controlled Pain: adequately controlled Airway Patency, RR, SpO2: stable & adequate BP & HR: stable & adequate Hydration State: stable & adequate Neuraxial Anesthesia: was administered and sensory block is resolving Anesthetic Complications: no major complications apparent and Pt Satisfied with anesthetic care
[2019-01-17] MEDS ORDERED: NALOXONE HCL 0.4 MG/1 ML VIAL/CARP IV PRN (09:48)
[2019-01-17] MEDS ORDERED: OXYCODONE HCL IR 5 MG TAB (IMMEDIATE RELEASE) PO PRN (09:48)
[2019-01-17] MEDS ORDERED: TAMSULOSIN HCL 0.4 MG CAP PO PRN (09:48)
[2019-01-17] MEDS ORDERED: BISACODYL 10 MG SUPP PR PRN (09:48)
[2019-01-17] MEDS ORDERED: HYDROmorphone INJ 0.5 MG/0.5 ML SYR IV PRN (09:48)
[2019-01-17] MEDS ORDERED: ALUMINUM/MAGNESIUM SUSP 30 ML UDC PO PRN (09:48)
[2019-01-17] MEDS ORDERED: ONDANSETRON INJ 2 MG/ML 2 ML VIAL IV PRN (09:48)
[2019-01-17] MEDS ORDERED: METOCLOPRAMIDE HCL INJ 5 MG/ML 2 ML VIAL IV PRN (09:48)
[2019-01-17] MEDS ORDERED: SODIUM CHLORIDE 0.9% 1000ML 1,000 ML IV SCH (09:48)
[2019-01-17] MEDS ORDERED: MAGNESIUM HYDROXIDE SUSP 30 ML UDC PO PRN (09:48)
[2019-01-17] MEDS ORDERED: DEXTROSE 50% 50 ML SYRINGE IV PRN (10:15)
[2019-01-17] MEDS ORDERED: GLUCOSE 10 TABS/TUBE PO PRN (10:15)
[2019-01-17] MEDS ORDERED: GLUCAGON FOR INJ 1 MG VIAL IM PRN (10:15)
[2019-01-17] MEDS ORDERED: GLUCOSE 40% GEL 15 GM TUBE PO PRN (10:15)
[2019-01-17] MEDS ORDERED: CARBOHYDRATES FOR HYPOGLYCEMIA PO PRN (10:15)
[2019-01-17] MEDS: DOCUSATE SODIUM 100 MG CAP PO SCH ×2 (10:37→21:29)
[2019-01-17] MEDS: ASPIRIN 81 MG ECTAB PO SCH (10:37)
[2019-01-17] MEDS: hydroCHLOROthiazide 25 MG TAB PO SCH (10:38)
[2019-01-17] MEDS: PANTOprazole 40 MG TAB PO SCH (10:38)
[2019-01-17] MEDS: AMLODIPINE BESYLATE 5 MG TAB PO SCH (10:38)
[2019-01-17] MEDS: FENOFIBRATE NANOCRYSTALLIZED 145 MG TABLET PO SCH (10:38)
[2019-01-17] MEDS: LISINOPRIL 20 MG TAB PO SCH (10:39)
[2019-01-17] MEDS: KETOROLAC 30 MG/ML VIAL IV SCH ×3 (10:43→21:30)
--- NOTE | 2019-01-17 11:07 | Operative Report ---
DATE OF OPERATION: 01/17/2019 SURGEON: Norman Urbano MD TUTOR: Abilio Lyon PA-C. No resident or fellow available. PREOPERATIVE DIAGNOSIS: Osteoarthritis with fixed varus deformity and flexion deformity of the right knee, tricompartmental osteoarthritis. POSTOPERATIVE DIAGNOSIS: Same. OPERATION PERFORMED: Cemented right total knee replacement. PERIOPERATIVE SITUATION: Medically cleared male with intractable knee pain, has severe deformity by x-ray and physical exam and wants to proceed with surgical treatment. He has failed conservative management for decades. He has a history of pulmonary embolism, DVT, treated aggressively with Coumadin postop. Last total knee replacement done in the past year. SUMMARY OF IMPLANTS: Size 5 right femur, size 5 mobile bearing tray right oval dome 3 peg patella size 41 and a size 5 x 12.5 spacer. Two bags of Palacos G cement. Bone pathology pending. DVT prophylaxis with Coumadin. ESTIMATED BLOOD LOSS: 25 mL. PROCEDURE: After the patient was properly identified, site verified, consent verified the right lower extremity was prepped and draped in usual routine fashion. Tourniquet inflated to 300 mmHg after exsanguination of limb for a total of 59 minutes. Midline exposure utilized. Parapatellar arthrotomy performed. Synovectomy completed, osteophytes resected. There was severe disease, tricompartmentally. Distal femur resected, proximal 14 mm, proximal tibia resected 4 mm, the extension gap was excellent. Femur was sized between a 6 and the 5 and was measured to 6, cut 5. There was no notching. The flexion gap was excellent. The posterior capsule was injected with 2 syringes of Orthomix. The box cut was then made and the size 5 trial fit well. The tibia was then broached and reamed to a size 5 and a 10 and 12.5 spacer were trialed; the 12.5 gave better mid-range flexion stability with no loss of extension. The patella was sized to 41 and was resected leaving about 18 mm. He had a very large patella. Seating hole was made and the trial tracked well with a size 41 button. All trial implants were then removed. The TXA was then placed for 2.5-3 minutes. This was then irrigated with Pulsavac and Betadine and Pulsavac and then the permanent cemented into position, tibia, femur and patella in that sequence. After 12 minutes, the tourniquet deflated. Minor bleeding controlled with electrocautery. After 14 minutes, the knee was flexed, the trial spacer removed. The knee irrigated. No cement removal required and the permanent liner seated, knee reduced and closed with #2 Vicryl, 2-0 Vicryl and stainless steel clips. Appropriate dressing applied. The patient transferred to recovery room in satisfactory condition having tolerated the procedure well. I attest to the content of the Intraoperative Record and any orders documented therein. Any exception s are noted below.
[2019-01-17] MEDS: ROSUVASTATIN CALCIUM 10 MG TAB PO SCH (11:52)
[2019-01-17] MEDS: METOPROLOL SUCC 50MG EXT REL TAB PO SCH (11:53)
[2019-01-17] MEDS: MULTIVITAMIN TAB PO SCH (11:53)
[2019-01-17] MEDS: INSULIN ASPART 100 UNITS/ML 3 ML PEN SC SCH ×3 (12:48→22:48)
[2019-01-17] MEDS: ACETAMINOPHEN 500 MG TAB PO SCH ×2 (13:26→21:29)
--- NOTE | 2019-01-17 13:43 | Progress Note ---
DATE: 01/17/2019 SUBJECTIVE: Postop check. Doing well. Neurovascular check is normal. Has no chest pain, shortness of breath, fever, chills, nausea, vomiting or headache. OBJECTIVE: Vital signs are stable. He is afebrile. Eating, drinking, voiding. The femoral sciatic nerve is normal. He can dorsiflex his foot and ankle and his toes and invert and omid as well as do a straight leg raise. Postop x-rays look excellent. ASSESSMENT: Doing well status post total knee replacement. Continue with postop care pathway. Discharge tomorrow.
--- NOTE | 2019-01-17 13:55 | Discharge Summary ---
REVISED REPORT CHIEF COMPLAINT: Right knee pain. HISTORY OF PRESENT ILLNESS: The patient with complicated past medical history who has extensive osteoarthritis of his right knee, wishing right total knee replacement. HOSPITAL COURSE: Has been uneventful. He would be discharged next day with home health services. PAST MEDICAL HISTORY: Remarkable for UT, hypertension, elevated cholesterol, DVT, PE, sleep apnea, type 2 diabetes, back pain, GERD, hiatal hernia, obesity, history of kidney stones. PAST SURGICAL HISTORY: Remarkable for knee surgery, disc surgery, cardiac stent placement, knee replacement in 08/2018. ALLERGIES: LISINOPRIL. Question penicillin G, tolerated cephalosporins. FAMILY HISTORY: Remarkable for hypertension, CVA, DJD. , has 2 sons. SOCIAL HISTORY: Reveals no alcohol or tobacco use. He is and retired. CURRENT MEDICATIONS: Include amlodipine, amoxicillin for dental visits, aspirin, Crestor, hydrochlorothiazide, ibuprofen, Lidoderm, , metformin, metoprolol, Nexium, omega 3, Tricor, Tylenol. Discontinue the Ultram. He will use oxycodone. REVIEW OF SYSTEMS: Noncontributory. Postop x-rays look good. ASSESSMENT: Doing well status post right total knee replacement. Continue for potential discharge tomorrow morning with home services. PEPITO
[2019-01-17] MEDS ORDERED: ORTHO WARFARIN NOMOGRAM SCH (14:00)
[2019-01-17] MEDS: CEFAZOLIN 2000MG 2,000 MG/15 ML SYR IV SCH ×2 (14:49→22:17)
[2019-01-17] MEDS ORDERED: WARFARIN SOD 5 MG TAB PO SCH (16:00)
[2019-01-17] MEDS: ASCORBIC ACID 500 MG TAB PO SCH (17:19)
[2019-01-17] MEDS: FERROUS GLUCONATE 324 MG TAB PO SCH (17:19)
[2019-01-17] MEDS ORDERED: SENNA 8.6 MG TAB PO SCH (21:00)
[2019-01-18] MEDS: KETOROLAC 30 MG/ML VIAL IV SCH (05:25)
[2019-01-18] MEDS: ACETAMINOPHEN 500 MG TAB PO SCH (05:26)
--- NOTE | 2019-01-18 06:34 | Progress Note ---
DATE: 01/18/2019 SUBJECTIVE: Postop day #1 status post right total knee replacement. The patient is doing very well, is up and ambulatory. He is eating, drinking, and voiding. Has no chest pain, shortness of breath, fever, chills, nausea, vomiting or headache. OBJECTIVE: Vital signs are stable. He is afebrile. The a.m. laboratory work is pending. Wound dressing is clean, dry, and intact. Neurovascular check, femoral sciatic nerve is normal. Can do a straight leg raise. ASSESSMENT: Doing well status post right total knee replacement. PLAN: To discharge home today after PT, OT.
[2019-01-18 06:43] LABS: Hematocrit (blood only) 34.9 % (42-52); Hemoglobin 11.6 g/dL (14.0-18.0); Mean Corpuscular Hemoglobin 29.1 pg (25-34); Mean Corpuscular Hgb Conc 33.2 g/dL (32-36); Mean Corpuscular Volume 87.7 fL (80-100); Mean Platelet Volume 8.5 fL (7.4-10.4); Platelet Count 185 K/uL (130-400); RDW Coefficient of Variation 13.7 % (11.5-14.5); RDW Standard Deviation 43.9 fL (36.4-46.3); Red Blood Count 3.98 M/uL (4.7-6.1); White Blood Count 10.11 K/uL (4.8-10.8)
[2019-01-18 06:50] LABS: INR 1.1 (0.9-1.1); Prothrombin Time 11.2 Seconds (9.0-12.0)
[2019-01-18 07:10] LABS: BUN Creatinine Ratio 22.3 (10-20); Calcium 8.8 mg/dl (8.5-10.1); Creatinine Clr Calc Pharmacy 97.1 ml/min; Est GFR (African American) 85.2; Est GFR (Non-African American) 73.5; Potassium 4.5 mmol/L (3.5-5.1)
[2019-01-18] MEDS ORDERED: dexAMETHasone 8 MG in SYRINGE 0 ML IV SCH (08:00)
[2019-01-18] MEDS: FERROUS GLUCONATE 324 MG TAB PO SCH (08:04)
[2019-01-18] MEDS: hydroCHLOROthiazide 25 MG TAB PO SCH (08:04)
[2019-01-18] MEDS: AMLODIPINE BESYLATE 5 MG TAB PO SCH (08:04)
[2019-01-18] MEDS: FENOFIBRATE NANOCRYSTALLIZED 145 MG TABLET PO SCH (08:04)
[2019-01-18] MEDS: ROSUVASTATIN CALCIUM 10 MG TAB PO SCH (08:04)
[2019-01-18] MEDS: PANTOprazole 40 MG TAB PO SCH (08:04)
[2019-01-18] MEDS: MULTIVITAMIN TAB PO SCH (08:04)
[2019-01-18] MEDS: ASCORBIC ACID 500 MG TAB PO SCH (08:04)
[2019-01-18] MEDS: LISINOPRIL 20 MG TAB PO SCH (08:05)
[2019-01-18] MEDS: METOPROLOL SUCC 50MG EXT REL TAB PO SCH (08:05)
[2019-01-18] MEDS: ASPIRIN 81 MG ECTAB PO SCH (08:05)
[2019-01-18] MEDS: DOCUSATE SODIUM 100 MG CAP PO SCH (08:05)
--- NOTE | 2019-01-18 08:21 | Anesthesiology Progress Note ---
Date of Service January 18, 2019 Anesthesia Post Procedure Vital Signs Vital Signs: Temp Pulse Pulse Pulse Resp BP BP 01/18/19 07:23 36.6 C 73 18 134/66 01/18/19 03:34 36.8 C 62 16 113/62 01/18/19 00:40 36.6 C 58 L 16 135/77 01/17/19 20:59 36.6 C 59 L 18 154/80 H 01/17/19 17:04 36.8 C 62 18 131/68 01/17/19 12:34 36.7 C 67 18 124/69 01/17/19 11:30 36.6 C 64 20 133/70 01/17/19 10:27 36.5 C 62 18 132/76 01/17/19 10:00 36.4 C L 56 L 18 136/77 01/17/19 09:30 36.4 C L 61 15 133/73 01/17/19 09:15 60 19 120/69 01/17/19 09:05 37.3 C 55 L 17 130/74 01/17/19 08:55 63 17 131/67 01/17/19 08:45 60 17 116/70 01/17/19 08:39 36.2 C L 62 18 124/67 Pulse Ox 01/18/19 07:23 98 01/18/19 03:34 96 01/18/19 00:40 96 01/17/19 20:59 96 01/17/19 17:04 95 01/17/19 12:34 93 01/17/19 11:30 95 01/17/19 10:27 96 01/17/19 10:00 94 01/17/19 09:30 92 01/17/19 09:15 94 01/17/19 09:05 95 01/17/19 08:55 95 01/17/19 08:45 95 01/17/19 08:39 95 Notes Mental Status: alert / awake / arousable and participated in evaluation Nausea / Vomiting: adequately controlled Pain: adequately controlled Airway Patency, RR, SpO2: stable & adequate BP & HR: stable & adequate Hydration State: stable & adequate
[2019-01-18] MEDS: INSULIN ASPART 100 UNITS/ML 3 ML PEN SC SCH (08:56)
--- NOTE | 2019-01-18 09:23 | Orthopedic Progress Note ---
Date of Service January 18, 2019 Assessment & Plan (1) S/P total knee replacement using cement: PT/OT this AM Ice with EZ wrap DVT prophylaxis with Coumadin and TEDs Pain control with PO Elmore Goal INR 1.8-2.2 WBAT with knee immobilizer (first 48 hrs) and walker assistance Discharge home today with inhome therapy Follow up at [facility] as scheduled With questions call Subjective This 63 yo M is day 1 s/p Right total knee arthroplasty. Doing very well with pain well controlled with PO meds. States that he does not want Rx for Percocet and would rather have Elmore. States that Percocet does "not agree with him," but that he has had Elmore in past without issue. Pt denies CP, SOB, nausea, vomiting, fever, chills, sweats or lethargy. States that he will be ready for discharge after PT/OT this AM. Review of Systems Review of Systems: All systems reviewed & are unremarkable except as noted in HPI & below Physical Exam Physical Exam: Right knee: ROM from 0-90. Dressing clean, dry and intact. Dressing changed. Wound looks good with agustín intact without drainage 2+ effusion. Quad strength 4/5 and easily able to perform SLRT. Calf soft and supple. Able to depict light sensation to touch around incision site. NV intact in Rt LE. Results & Data Vital Signs (Past 12 Hours) Vital Signs Temp Pulse Resp BP BP Pulse Ox 01/18/19 07:23 36.6 C 73 18 134/66 98 01/18/19 03:34 36.8 C 62 16 113/62 96 01/18/19 00:40 36.6 C 58 L 16 135/77 96 Laboratory Results 01/18/19 01/18/19 01/18/19 Range/Units 07:59 06:25 06:25 WBC (4.8-10.8) K/uL RBC (4.7-6.1) M/uL Hgb (14.0-18.0) g/dL Hct (42-52) % MCV (80-100) fL MCH (25-34) pg MCHC (32-36) g/dL RDW Std Deviation (36.4-46.3) fL RDW Coeff of Sol (11.5-14.5) % Plt Count (130-400) K/uL MPV (7.4-10.4) fL PT 11.2 (9.0-12.0) Seconds INR 1.1 (0.9-1.1) Sodium 139 (136-145) mmol/L Potassium 4.5 (3.5-5.1) mmol/L Chloride 103 (98-107) mmol/L Carbon Dioxide 31 (21-32) mmol/L Anion Gap 5.0 (3-11) BUN 24 H (7-18) mg/dl Creatinine 1.07 (0.6-1.4) mg/dl Est Cr Clr Drug Dosing 97.1 ml/min Est GFR ( Amer) 85.2 Est GFR (Non-Af Amer) 73.5 BUN/Creatinine Ratio 22.3 H (10-20) Glucose 158 H (70-99) mg/dl POC Glucose 152 H (70-99) Calcium 8.8 (8.5-10.1) mg/dl 01/18/19 01/17/19 01/17/19 Range/Units 06:25 20:52 17:23 WBC 10.11 (4.8-10.8) K/uL RBC 3.98 L (4.7-6.1) M/uL Hgb 11.6 L (14.0-18.0) g/dL Hct 34.9 L (42-52) % MCV 87.7 (80-100) fL MCH 29.1 (25-34) pg MCHC 33.2 (32-36) g/dL RDW Std Deviation 43.9 (36.4-46.3) fL RDW Coeff of Sol 13.7 (11.5-14.5) % Plt Count 185 (130-400) K/uL MPV 8.5 (7.4-10.4) fL PT (9.0-12.0) Seconds INR (0.9-1.1) Sodium (136-145) mmol/L Potassium (3.5-5.1) mmol/L Chloride (98-107) mmol/L Carbon Dioxide (21-32) mmol/L Anion Gap (3-11) BUN (7-18) mg/dl Creatinine (0.6-1.4) mg/dl Est Cr Clr Drug Dosing ml/min Est GFR ( Amer) Est GFR (Non-Af Amer) BUN/Creatinine Ratio (10-20) Glucose (70-99) mg/dl POC Glucose 176 H 172 H (70-99) Calcium (8.5-10.1) mg/dl 01/17/19 Range/Units 12:09 WBC (4.8-10.8) K/uL RBC (4.7-6.1) M/uL Hgb (14.0-18.0) g/dL Hct (42-52) % MCV (80-100) fL MCH (25-34) pg MCHC (32-36) g/dL RDW Std Deviation (36.4-46.3) fL RDW Coeff of Sol (11.5-14.5) % Plt Count (130-400) K/uL MPV (7.4-10.4) fL PT (9.0-12.0) Seconds INR (0.9-1.1) Sodium (136-145) mmol/L Potassium (3.5-5.1) mmol/L Chloride (98-107) mmol/L Carbon Dioxide (21-32) mmol/L Anion Gap (3-11) BUN (7-18) mg/dl Creatinine (0.6-1.4) mg/dl Est Cr Clr Drug Dosing ml/min Est GFR ( Amer) Est GFR (Non-Af Amer) BUN/Creatinine Ratio (10-20) Glucose (70-99) mg/dl POC Glucose 215 H (70-99) Calcium (8.5-10.1) mg/dl
[2019-01-18] MEDS ORDERED: HYDROCODONE/ACETAMOPHEN 5/325MG TAB PO ONE (11:10)
[2019-01-18] MEDS ORDERED: WARFARIN SOD 5 MG TAB PO SCH (16:00)
== END 2019-01-18 12:00 | disposition home health service (06) | DRG 470 ==
LOC: ASU 05:04 → 3E 08:50